=== PATIENT | male | born 1965 | race Hispanic/Latino ===

== ENCOUNTER 2018-04-13 19:05 | Emergency (ER) | payer OTHER ==
[~2018-04-13] VITALS: Ht 188 cm; Wt 122.9 kg
[~2018-04-13 19:05] MED LIST: MOTRIN600 MG PO; MOTRIN800 MG PO; NOHOMEMEDS; NORCO 10/3251 TABLET PO; PEN-VEE K,VEET500 MG PO; ULTRAM50 MG PO
[2018-04-13] MEDS ORDERED: MOTRIN800 MG PO (23:37)
[2018-04-13] MEDS ORDERED: ULTRAM50 MG PO (23:37)
[2018-04-14 00:30] VITALS: BP 120/79
== END 2018-04-14 00:31 | disposition home or self-care (01) ==
LOC: EME 19:05
DX: M25.562 Pain in left knee (principal); M54.5 Low back pain; M51.36 Other intervertebral disc degeneration, lumbar region; M17.12 Unilateral primary osteoarthritis, left knee; F17.200 Nicotine dependence, unspecified, uncomplicated; Z98.890 Other specified postprocedural states
CPT/HCPCS: 72100; 73564; 99281; 99284